=== PATIENT | female | born 1995 | race Two or more races ===

== ENCOUNTER 2024-09-16 08:45 | Outpatient (RCR) | payer MEDICAID, SELFPAY ==
[2024-09-14 10:23] LABS: HCG Qualitative,Urine Negative
--- NOTE | 2024-09-15 09:00 | XR_ITS ---
Examination: Nuclear medicine thyroid uptake and scan Date and time: September 15, 2024 0812 hours INDICATIONS: Diagnosis nontoxic goiter, outside ultrasound examination thyroid nodules, difficulty swallowing TECHNIQUE AND FINDINGS: Oral administration 287 uCi [id number] 6 hour 24 hour uptake values recorded as well as anterior oblique scans 6 hour uptake 15.2% normal range 6-24% 24 hour uptake 30.7% normal range 10-36% Multiple areas of photon deficit in both thyroid lobes IMPRESSION: Normal uptake values Multiple bilateral thyroid nodules
== END 2024-09-21 23:59 | disposition home or self-care (01) ==
LOC: SNUC 08:45
PROVIDERS: PCP Physician Assistant; Referring Provider Physician Assistant; Visit Provider Physician Assistant
DX: E04.2 Nontoxic multinodular goiter (principal); Z32.00 Encounter for pregnancy test, result unknown
CPT/HCPCS: 78013; 81025; A9516

== ENCOUNTER 2024-12-27 11:00 | Outpatient (RCR) | payer MEDICAID, SELFPAY ==
--- NOTE | 2024-12-05 12:04 | PTNOTE_ITS ---
PT OP Initial Eval Patient Information Outpatient Physical Therapy Treatment Date: 12/05/24 Visit Reasons: Pain in Left shoulder Medical Diagnosis: Left Shoulder Pain Treatment Dx #1: Left Shoulder Pain Start of Care: 12/05/24 Date of Onset: 1 year ago Smoking Status Smoking Status: Never smoker Initial Assessment Subjective: Pt is a 29 y/o female reports of chronic left shoulder and chest pain (7/10) with intermittent numbness down her arm. Pt's heart has been screened out. Pt further mentioned she was diagnosed with myasthenia gravis at a young age. No imaging has been done thus far. Pt has limitation with driving, cooking, sleeping, work duties, chores, self care, and performing recreational activities. Objective: Left Shoulder AROM: all motions are WFL with end range pain into flexion and abduction Left Shoulder MMTs: grossly 4-/5 Left Scapula MMTs: grossly 3+/5 C/S AROM: all motions are WFL Palpation: mild curtave noted at the thoracic spine Posture: right trunk side bending, shoulder elevation L>R Assessment: Pt demonstrate left shoulder pain leading to difficulty with ADLs. Pt will attempt physical therapy if pain persist Pt will be refer back to provider for further consultation. Short Term and [employer] Goals 1) Increase left shoulder AROM WNL in 6 wks to be able to perform overhead motions 2) Increase left shoulder MMTs grossly to 4/5 in 6 wks to be able to perform chores 3) Decrease shoulder pain to 2/10 in 6 wks to be able to perform lifting activities 4) Increase left scapula MMTs grossly to 4-/5 in 6 wks to be able to perform recreational activities 5) Indep with HEP Treatment Plan 1) Manual Therapy 2) Therapeutic Activities 3) Therapeutic Exercises 4) Modalities (ice, heat) Frequency and Duration: 2 x wk for 6 wks Certification Dates: 12/05/24 to 03/06/25 Procedure Charges OP PT Eval Mod Complex 30 minutes: Yes
--- NOTE | 2024-12-09 14:35 | PT.ODAYNRPT ---
PT Outpatient Daily Note OP Daily Note Outpatient Physical Therapy Treatment Date: 12/09/24 Visit Reasons: Pain in Left shoulder Subjective: Pt still having shoulder pain especially in the shoulder blade. Objective: Observation: left scapula wing Assessment: Pt tolerate exercises performed in therapy. frequent rest breaks due to fatigue secondary to myasthenia gravis condition Plan: Continue with PT Length of Time (minutes) of Treatment: 30 Minutes Procedure Charges Therapeutic Exercise 30 minutes: Yes
--- NOTE | 2024-12-16 14:58 | PT.ODAYNRPT ---
PT Outpatient Daily Note OP Daily Note Outpatient Physical Therapy Treatment Date: 12/16/24 Visit Reasons: Pain in Left shoulder Subjective: Pt's shoulder about the same. Pt continues to experience arm fatigue and pain coming from the shoulder down the bottom of the arm. Pt has a follow up appt with PCP tomorrow Objective: Please see flow chart for list of ther ex performed Assessment: arm fatigue with gume unable to complete instructed time. Pt advised to consult with PCP tomorrow regarding radicular pain down the arm; patient gave verbal understanding and consent Plan: Continue with PT Length of Time (minutes) of Treatment: 30 Minutes Procedure Charges Therapeutic Exercise 30 minutes: Yes
--- NOTE | 2024-12-27 11:52 | PT.ODAYNRPT ---
PT Outpatient Daily Note OP Daily Note Outpatient Physical Therapy Treatment Date: 12/27/24 Visit Reasons: Pain in Left shoulder Subjective: Pt recently seen PCP; PCP agree she may have mild form of scoliosis and will order xray. Pt's shoulder pain is about the same. Objective: Please see flow chart for list of ther ex performed Assessment: tolerate exercises with minimal pain. Plan: Continue with PT Length of Time (minutes) of Treatment: 30 Minutes Procedure Charges Therapeutic Exercise 30 minutes: Yes
== END 2024-12-27 23:59 | disposition home or self-care (01) ==
LOC: CPTX 11:00
PROVIDERS: PCP Physician Assistant; Referring Provider Physician Assistant; Visit Provider Physician Assistant
DX: M25.512 Pain in left shoulder (principal); R07.9 Chest pain, unspecified; R20.0 Anesthesia of skin; G70.00 Myasthenia gravis without (acute) exacerbation
CPT/HCPCS: 97110; 97162

== ENCOUNTER 2025-01-20 08:00 | Outpatient (RCR) | payer MEDICAID, SELFPAY ==
--- NOTE | 2025-01-06 13:48 | PT.ODAYNRPT ---
PT Outpatient Daily Note OP Daily Note Outpatient Physical Therapy Treatment Date: 01/06/25 Visit Reasons: PAIN IN LEFT SHOULDER Subjective: Pt's shoulder feels much better. Pt mentioned she has not experience pain to her chest lately. Objective: Please see flow chart for list of ther ex performed Assessment: Pt demonstrate full shoulder AROM with no pain today. Progress patient's TB walkout to RTB with good tolerance Plan: Continue with PT Length of Time (minutes) of Treatment: 30 Minutes Procedure Charges Therapeutic Exercise 30 minutes: Yes
--- NOTE | 2025-01-13 16:10 | PT.ODAYNRPT ---
PT Outpatient Daily Note OP Daily Note Outpatient Physical Therapy Treatment Date: 01/13/25 Visit Reasons: PAIN IN LEFT SHOULDER Subjective: Pt's shoulder feels much better. Pt notice less pain in the back of the shoulder. Objective: Please see flow chart for list of ther ex performed Assessment: progress patient to more isotonic exercises with good tolerance. Pt fatigue post PT session Plan: Continue with PT Length of Time (minutes) of Treatment: 30 Minutes Procedure Charges Therapeutic Exercise 30 minutes: Yes
--- NOTE | 2025-01-20 09:47 | PT.ODAYNRPT ---
PT Outpatient Daily Note OP Daily Note Outpatient Physical Therapy Treatment Date: 01/20/25 Visit Reasons: PAIN IN LEFT SHOULDER Subjective: Pt's shoulder is better. Pt will like to finish her last appt and will be refer to therapy for scoliosis Objective: Please see flow chart for list of ther ex performed Assessment: tolerate exercises with minimal pain and continues to progress with shoulder exercises and resistance Plan: Continue with PT Length of Time (minutes) of Treatment: 30 Minutes Procedure Charges Therapeutic Exercise 30 minutes: Yes
== END 2025-01-27 23:59 | disposition home or self-care (01) ==
LOC: CPTX 08:00
PROVIDERS: PCP Physician Assistant; Referring Provider Physician Assistant; Visit Provider Physician Assistant
DX: M25.512 Pain in left shoulder (principal); R07.9 Chest pain, unspecified; R20.0 Anesthesia of skin; G89.29 Other chronic pain
CPT/HCPCS: 97110

== ENCOUNTER 2025-02-03 08:02 | Outpatient (RCR) | payer MEDICAID, SELFPAY ==
--- NOTE | 2025-02-08 08:41 | PT.ODS1RPT ---
PT OP Progress/Discharge Note Date of Service: 02/03/25 Progress Note/DC Note Progress Note/Discharge Note: DC Note Patient Information Medical Diagnosis: Left Shoulder Pain Treatment Dx #1: Left Shoulder Pain Service Continue Service or Discharge: Discharge Discharge Date: 02/08/25 Status Subjective: Pt's shoulder is better. Pt has been able to work longer, lift, perform overhead motions, and self care with less limitation. At this time Pt will like to be release from care with exercises to continue at home. Pt will be soon starting therapy for her back. Objective: Left Shoulder AROM: all motions are WNL Left Shoulder MMTs: grossly 4/5 Left Scapula MMTs: grossly 4-/5 C/S AROM: all motions are WNL Posture: right trunk sidebending; shoulder elevation L>R Assessment: Pt demonstrate functional left shoulder mobility and strength and has been able to resume ADLs with less limitation. Pt has met set goals in therapy and will no longer benefit from physical therapy. Pt was instructed on HEP last session and educated to continue exercises to maintain overall mobility. Pt performed all exercises safely, thank you for your referrals. Plan: D/C home with HEP and follow up with MD MCPHERSON Procedure Charges Therapeutic Exercise 30 minutes: Yes
== END 2025-02-26 23:59 | disposition home or self-care (01) ==
LOC: CPTX 08:02
PROVIDERS: PCP Physician Assistant; Referring Provider Physician Assistant; Visit Provider Physician Assistant
DX: M25.512 Pain in left shoulder (principal); R07.9 Chest pain, unspecified; R20.0 Anesthesia of skin; G89.29 Other chronic pain
CPT/HCPCS: 97110